=== PATIENT | female | born 2005 | race Caucasian/White ===

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

== ENCOUNTER 2024-09-15 09:37 | Outpatient (OUT) | payer BC, SELFPAY ==
--- OUTSIDE RECORDS SUMMARY | 2024-06-30 05:20 | XMS_ITS | Continuity of Care Document ---
Author Organization [facility] Address [address] [facility] [place] [address] Phone Care Team Providers Care Shellfish Grower Name Role Phone Frame, Hill Unavailable Unavailable Allergies, Adverse Reactions, Alerts Substance Reaction Status Criticality No Known Allergies Active No Inform ation Medications Medication Instructions Dosage Effective Dates (start - stop) Status Comments ashwagandha extract 120 mg capsule - Active Hair, Skin and Nails (biotin) 10,000 mcg chewable tablet - Active fludrocortisone 0.1 mg tablet take 1 tablet by oral route every day 0.1 MG - Active Judie Fe 1.5/30 (28) 1.5 mg-30 mcg (21)/75 mg (7) tablet take 1 tablet by oral route every day 1.00 tablet - Active escitalopram 10 mg tablet take 1 tablet by oral route every day 10 MG - Active iron 325 mg (65 mg iron) tablet take 1 tablet by oral route every day 325 MG - Active Procedures Procedure Date CHIROPRACTIC MANIPULATION CHIROPRACTIC MANIPULATION CHIROPRACTIC MANIPULATION CHIROPRACTIC MANIPULATION OFFICE/OUTPATIENT VISIT, NEW STREP A ASSAY W/OPTIC INFLUENZA ASSAY W/OPTIC INFLUENZA ASSAY W/OPTIC OFFICE/OUTPATIENT VISIT, EST OFFICE/OUTPATIENT VISIT, NEW Advance Directives Directive Yes / No Effective Date File Name No Information Encounters Encounter Description Practice Location Reason(s) For Visit Diagnoses Date Provider Providers Copied on Encounter [facility], [address] [place] [address] [address], [place], [place], [id number], tel:[phone] [facility] Adjustment (chief complaint) Segmental and somatic dysfunction of cervical regionNeck pain, acuteSegmental and somatic dysfunction of thoracic regionPain in thoracic spineSegmental and somatic dysfunction of lumbar regionSegmental and somatic dysfunction of pelvic regionSacroiliac joint painRecurrent headacheAcute bilateral low back pain without sciatica Apr-2 - 5 Frame Hill. [address], [place], [place], [id number] , [place]. tel:[phone] Referring Provider: Hill Rivera, [address] [place], [address] . tel:[phone] [facility], [address] [place] [address], [place], [place], [id number], tel:[phone] [facility] adj (chief complaint) Segmental and somatic dysfunction of thoracic regionPain in thoracic spineSegmental and somatic dysfunction of lumbar regionChronic bilateral low back pain without sciaticaSegmental and somatic dysfunction of pelvic regionSacroiliac joint painOther chronic painSegmental and somatic dysfunction of cervical regionNeck pain, acute May-03 11- 5 Frame Hill. [address], [place], [place], [id number] , [place]. [phone] Referring Provider: Hill Rivera, [address] [place], [address] . tel:[phone] [facility], [address] [place] [address] [address], [place], [place], [id number], tel:[phone] [facility] Adjustment (chief complaint) Segmental and somatic dysfunction of thoracic regionPain in thoracic spineSegmental and somatic dysfunction of lumbar regionChronic bilateral low back pain without sciaticaOther chronic painSegmental and somatic dysfunction of pelvic regionSacroiliac joint pain Mar-0 - 5 Frame Hill. [address], [place], [place], [id number] , [place]. [phone] Referring Provider: Hill Rivera, [address] [place] [place], [address] . tel:[phone] OFFICE/OUTPAT IENT VISIT, [facility], [address] [address] [address], [place], [place], [id number], [place] tel:[phone] [facility] Establish Chiro Care (chief complaint) Segmental and somatic dysfunction of thoracic regionPain in thoracic spineSegmental and somatic dysfunction of lumbar regionChronic bilateral low back pain without sciaticaOther chronic painSegmental and somatic dysfunction of pelvic regionSacroiliac joint pain 5 Wilmer Alejandre. [address], [place], [place], [id number] , [place]. [phone] Referring Provider: Hill Rivera, [address], [place], [address] . tel:[phone] OFFICE/OUTPAT IENT VISIT, [facility], [address] [place] [address] [address], [place], [place], [id number], [place] tel:[phone] [facility] sore throat (chief complaint) Pharyngitis due to other organismFlu-like symptomsViral URI 4 Alfonso PICHARDO [employer]UDENT UNION CONS[employer] MILDRED Carter. [address], [place], [place], [id number] , [place]. [phone] Referring Provider: Emma PICHARDO [employer]UDENT [employer] CONS[employer], [address], [place], [address] . tel:[phone] OFFICE/OUTPAT IENT VISIT, [employer] [facility] [employer] [facility], [address] [place] [place] [address] [address], [place], [place], [id number], [place] tel:[phone] [facility] headache (chief complaint) Tension headache 0 4 Fernandez Shultz. [address], [place], [place], [id number] , [place]. tel:[phone] Referring Provider: Lexii Presley PA-C, [address], [place], [address] . tel:[phone] Family History Family Member Type Diagnosis Age At Onset No Information Payers Payer name Insurance type Covered green party ID Hung LUCAS (s) [id number] Social History Type Description Quantity Date Captured Comments Alcohol Use Details Unknown Caffeine Use Details Unknown Tobacco Use Status No Information Smoking Status No Information Sex Female Chief Complaint And Reason For Visit From encounter dated '06/30/2024 09:20'. Adjustment (chief complaint). Description: The patient returns to the office with complaints of increased headaches, neck pain, mid back pain, and lower back pain. She attributes the worsening of hersymptoms and headaches to stress, particularly due to finals week approaching. She notes a slight increase in overall stress, as well as prolonged periods of sitting to study and working two jobs that require her to be on her feet for extended times, which she believes contributes to the elevation of her symptoms. She finds relief with career and technology education teacher and denies any specific injuries or accidents that may have caused her symptoms. Her headaches, primarily stress-related, are described as throbbing pain originating from the right suboccipital region, occurring intermittently about 50% of theday throughout the week. She rates her neck and mid back pain at 3?4/10, describing it asa tight, dull ache, and her lower back pain, which is worse on the right side, as a dull, sharp, intermittent ache throughout the day. She has no additional concerns at this time. Reason For Referral Reason For Referral No Information Plan Of Treatment Date Type Action Status Future Order: Lab Order Throat C surinder ([id number]), Ordered on: Ordered History Of Present Illness Encounter Date Complaint History Of Prese nt Illness Adjustment The patient retu rns to the office with complaints of increased headaches, neck pain, mid back pain, and lower back pain. She attributes the worsening of her symptoms and headaches to stress, particularly due to finals week approaching. She notes a slight increase in overall stress, as well as prolonged periods of sitting to study and working two jobs that require her to be on her feet for extended times, which she believes contributes to the elevation of her symptoms. She finds relief with career and technology education teacher and denies any specific injuries or accidents that may have caused her symptoms. Her headaches, primarily stress-related, are described as throbbing pain originating from the right suboccipital region, occurring intermittently about 50% of the day throughout the week. She rates her neck and mid back pain at 3 4 /10, describing it as a tight, dull ache, and her lower back pain, which is worse on the right side, as a dull, sharp, intermittent ache throughout the day. She has no additional concerns at this time. adj The patient retu rns to the office with complaints of elevated lower right-sided back pain. 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 She rates her lower back pain at 3/10, occurring about 25-50% of the day, describing it as a dull ache that can occasionally become sharp. She also mentions mild neck and mid back pain, which she attributes to stiffness from being on her feet for prolonged periods and carrying heavy buckets. She describes the pain in her neck and mid back as a mild dull ache, occurring less than 25% of the day, and notes that it has continued to improve since her last treatment. She has no additional concerns on today's visit and denies any new injuries or accidents since her last visit to the office. Adjustment The patient retu rns to the office for follow-up treatment for her ongoing mid-back and lower back pain. She reports significant improvement since her last visit, noting that her symptoms are occurring less frequently, now less than 25% of the day, and describing the pain as an occasional dull ache. She mentions being able to walk her dog for longer periods with less noticeable pain or flare-ups. Additionally, she notes that she has been able to sit for prolonged periods while studying for class with less discomfort and pain. Establish Chiro Care The patient presents to the office with complaints of ongoing mid and lower back pain that extends into her hips. She rates her mid-back pain at 3/10 and her lower back pain at 7/10. She reports that her symptoms occur frequently, about 50-75% of the day, and describes the pain as an aching sensation. The patient denies any specific trauma or incident that could have contributed to or worsened her symptoms. She mentions being active in sports, particularly volleyball in the past in 2021, where frequent diving may have aggravated her pain, but she has experienced random flare-ups of similar pain since then. Sitting for prolonged periods and walking around campus tend to elevate her symptoms, especially if she overexerts herself. She notes that more recently she has been sitting for prolonged periods in her bed to study which she notes has aggravated her symptoms Additionally, sitting, standing for long periods, sleeping, or lying down can worsen her pain. She uses heat and her home TENS unit, which provides some relief. The patient also notes having had career and technology education teacher in the past with a chiropractor in [place] at [facility], where she typically found relief for similar symptoms. 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 Comments: Luis Carlos rivera presents accompanied by her friend with complaints of URI like symptoms that began approximately 24 hours ago. Endorses nasal congestion, sore throat, fever of 102.7 that is improved after Tylenol administration. Chills, body aches, and mild fatigue. Patient states that she was recently diagnosed with tension headaches and those seem to be worse as well. Denies any nausea, vomiting, diarrhea, chest pain, cough, or shortness for breath. States that she has been taking ibuprofen, Tylenol, and Excedrin with some relief of her symptoms. Has not taken any cough or cold meds. States that her headache pain is moderate. Is able to eat and drink appropriately. sore throat Onset: 1 Day. Th e severity of the problem is mild. The problem has worsened. The symptoms are persistent. Context additional comments: not around anyone sick. Aggravating factors include lying down. Symptoms are relieved by OTC analgesics. Relieved by additional comments: Tylenol/Ibuprofen ATC. Associated symptoms include chills/rigors, dyspnea, fatigue, headache, nasal congestion and postnasal drainage. Associated symptoms additional comments: body aches. Pertinent negatives include fever or sore throat. Comments: Luis Carlos rivera presents complaining of 2 week history of on/off headache. Patient reports pain level today is 3/10. Patient reports pain is mostly located to the back of her head and wraps around. Patient denies associated URI symptoms. Denies associated trauma to the head. Patient denies PMH of migraines. Patient has been taking Tylenol/ibuprofen with moderate relief. Patient states when medication wears off her headache returns. Denies associated visual changes. Denies associated nausea or episodes of vomiting. Patient reports mother has history migraines. headache Onset: 2 Weeks. Pain level: 3/10. Locations affected include occipital and bilateral temporal. Headache timing includes no pattern. Symptoms are not associated with menses, recent head trauma, recent MVA and stress. Aggravating factors include bright lights and head position. Denies relieving factors. Associated symptoms include phonophobia and photophobia. Pertinent negatives include blurred vision, diplopia, dizziness, fever, hemianopsia left, hemianopsia right, loss of consciousness, memory impairment, nausea, personality changes, neck stiffness, vision loss left, vision loss right, visual aura, vertigo and vomiting. Additional information: states she has had the same dull headache for 2 weeks. no hx of migraines. rates it 3/10. just states it's consistent and she's worried about starting migraines. Mother has a hx of. Functional Status Date Functional Assessmen t No Information Instructions Date Instruction Additional Infor wilbur Viral Upper Respirat ory infections can be caused by many different viruses, and they cause inflammation of the upper respiratory tract. Common symptoms include sore throat, cough, congestion, fever, and body aches. Your rapid strep and influenza tests were negative in the office today. A backup throat culture was sent out to ensure accuracy. You will be notified of results and provided with antibiotic if appropriate.You were provided with a Medrol Dosepak to help with your headache. Please follow package instructions.It is recommended that you avoid contact with others until you are fever free off of fever reducing medications for 24 hours. Tamiflu is a treatment for influenza. We discussed his during your visit. Due to the fact that we did not have a definitive diagnosis you declined Tamiflu treatment at this time.May alternate Tylenol and Ibuprofen to manage any pain or fevers. You may take up to 800 mg of Ibuprofen every 8 hours, and 1000 mg of Tylenol every 6 hours in alternation. You may utilize [id number] cough and cold medicine just make sure that they do not also have Tylenol in them. I recommend Sudafed for any nasal congestion. And Delsym for any cough.Increase fluid intake and ensure adequate amounts of rest. You were provided with a note for school.Follow up with your primary care provider regarding her tension headache diagnosis. Continue to follow instructions on treatment per your PCP.Please return if new or worsening symptoms present, you may also follow up with your PCP. Please go to the Emergency room for any difficulty with breathing, severe hoarseness, difficulty swallowing, persistent high fever, or uncontrolled vomiting. Related to Pharyngitis due to other organism Due to limited testi ng available in urgent care, brain structural abnormalities, stroke, and other potentially life threatening causes for headache cannot be ruled out. Red Flags that would warrant immediate evaluation in the Emergency Room would include but are not limited to the following: Headaches worsen Seizures If symptoms become worse or if develop confusion, drowsiness, or any change in awareness Increasing confusion or irritability Alterations in mental status Unusual behavior change Can't recognize people or places Change in state of consciousness Very sleepy (more than expected) or can't be awakened Trouble speaking or slurred speech Difficulty walking Repeated vomiting Dizziness or fainting Loss of balance Weakness or numbness of an arm, leg, or a part of your body Development of fever and neck pain/stiffness Change in state of consciousness Can't recognize people or places Focal neurological signs, such as face droop, eyelid droop, foot drop, or any other neurological abnormality Any concern that your symptoms are worsening or emergentRecommendations: Sleep in a dark room Apply cool wash cloth over eyes maintain proper hydration Take ibuprofen per prescription instructions with food to avoid upset stomach. You should not take ibuprofen if: you have kidney disease, high blood pressure or if you already take blood thinners. Ibuprofen per prescription instructions as needed for pain per prescription instructions--take with food to avoid stomach upset. You may alternate with Tylenol over the counter as needed for pain per package instructions Related to Tension headache Assessments Type Assessment Date assessment Segmental and somatic dysfunctio n of cervical region assessment Neck pain, acute assessment Segmental and somatic dysfunctio n of thoracic region assessment Pain in thoracic spine assessment Segmental and somatic dysfunctio n of lumbar region assessment Segmental and somatic dysfunctio n of pelvic region assessment Sacroiliac joint pain assessment Recurrent headache assessment Acute bilateral low back pain wi thout sciatica Patient Care Teams Name Effective Dates (start - stop) Status Members No Information
--- OUTSIDE RECORDS SUMMARY | 2024-09-13 15:45 | XMS_ITS | Encounter Summary ---
Author Organization [facility] Address [address] [place] [address] Care Team Providers Care Store Clerk Checker Name Role Phone Ofe Lopes MD Primary Care Provider [phone] Reason for Visit * Reason Comments 4th pow Exc. of pilonidal cyst & sinus N oticed there was an small opening like a paper cut. Now it looks to be larger. Pt is feeling not great today. She was running a fever but that broke yesterday. Encounter Details Date Type Department Care Team (Late st Contact Info) Description 09/13/2024 3:45 PM EDT Office Visit [facility] [address] [phone] Alfred Monsalve MD [address] [address] Dehiscence of wound of skin, initial encounter (Primary Dx); Pilonidal cyst Social History Tobacco Use Types Packs/Day Years Used Date Smoking Tobacco: Never Smokeless Tobacco: Never Alcohol Use Standard Drinks/Week Comments Yes 0 (1 standard drink = 0.6 oz pur e alcohol) Comments Unknown Sex and Gender Information Value Date Recorded Sex Assigned at Not on file Legal Sex Female 7:15 PM EDT Gender Identity Not on file Sexual Orientation Not on file documented as of this encounter Last Filed Vital Signs Vital Sign Reading Time Taken Comments Blood Pressure - - Pulse - - Temperature - - Respiratory Rate - - Oxygen Saturation - - Inhaled Oxygen Concentration - - Weight 84.4 kg (186 lb) 09/13/2024 3:44 PM EDT Height 156.2 cm (5' 1.5 ) 09/13/2024 3:44 PM EDT Body Mass Index 34.58 09/13/2024 3:44 PM EDT documented in this encounter Progress Notes * Alfred Negrete MD - 09/13/2024 3:45 PM EDT Images from the original note were not included. Patient was about 1 month status post excision of pilonidal cyst and sinus. She was doing very welluntil about a day or so ago when she noticed not feeling well and then developed an open wound at the lower portion of her incision site. On examination, she is awake alert and in no acute distress. The pilonidal incision site shows that the upper portion of the wound remains healed. The lower portion does show separation of the skin. There is underlying pink granulation tissue. There is no surrounding erythema or induration. 1. Dehiscence of wound of skin, initial encounter 2. Pilonidal cyst The lower portion of the incision does have stress placed every time the patient sits down because of the location between the buttocks and the buttocks naturally spreading apart on sitting down. Plan will be to start wet-to-dry dressings to be done daily. Patient's mother will be shown the dressing changes. The patient will follow up in about 1 week. If the wound does heal rapidly, we may let it heal by secondary intention. Other option would be a delayed primary closure. documented in this encounter Plan of Treatment Upcoming Encounters Date Type Department Care Team (Late st Contact Info) Description 09/20/2024 4:00 PM EDT Office Visit [facility] [address] [phone] Alfred Monsalve MD [address] [address] documented as of this encounter Visit Diagnoses Diagnosis Dehiscence of wound of skin, initial encounter- Primary Pilonidal cyst documented in this encounter Care Teams Store Clerk Checker Relationship Specialty Start Date End Date Ofe Lopes MD [address] [facility] [place] [address] PCP - General Family Medicine 07/25/24 documented as of this encounter
--- OUTSIDE RECORDS SUMMARY | 2024-09-15 04:44 | XMS_ITS | Continuity of Care Document ---
Author Organization [facility] Address [address] [place] [address] Phone Care Team Providers Care Registered Radiologic Technologist Name Role Phone Alfred Monsalve MD Attending Provider Ofe Lopes MD Primary Care Provider Ofe Lopes MD Attending Provider Care Teams Patient Care Team Team Status: Active Member Role Status Dates Ofe Lopes MD Primary Care Provider Active Visit Care Team Team Status: Inactive Member Role Status Dates Alfred Monsalve MD Attending Provider Active Sta rt: August 11, 2024 End: August 11, 2024 Ofe Lopes MD Primary Care Provider Active Start: August 11, 2024 End: August 11, 2024 Patient Care Team Team Status: Inactive Member Role Status Dates Ofe Lopes MD Primary Care Provider Active Start: September 15, 2024 End: September 15, 2024 Ofe Lopes MD Attending Provider Active St art: September 15, 2024 End: September 15, 2024 Chief Complaint and Reason for Visit Chief Complaint Admit Date Pilonidal Cyst August 11, 2024 5:44a m swollen face September 15, 2024 8:07 am Reason for Visit Admit Date Dyspnea September 15, 2024 8:07 am Nausea September 15, 2024 8:07 am Swollen face September 15, 2024 8:07 am Allergies, Adverse Reactions, Alerts Allergen Type Severity Reaction Last Updated Verified Status No Known Allergies Allergy Unknown September 15, 2024 8:14a m Yes Active Social History Smoking Status Status Start Date End Date Date of Observa tion Never smoked tobacco (finding) September 15, 2024 8:16am Observation Status Observation Response Date of Response Legal Sex Female (finding) Sex Assigned At Female October, 2005 Family History Relationship Condition Age at Onset Recorded Date/T darrell father Asthma Unknown mother History of cholecystectomy Unknown Problems Active Problems Medical Problem Onset Date Status Chronic recurrent pilonidal cyst Unknown Active Other acute postprocedural pain Unknown Active Swollen face Unknown Active Dyspnea Unknown Active Tension type headache Unknown Active Nausea Unknown Active Medications Medication Status Dose Units Route Directions Qty Days St art Date Stop Date End Date Instructions Adherence Ferrous Sulfate (Ferosul) 325 mg (65 mg iron) tablet Active 325 MG PO Every morning August 11, 2024 12:00a m Complies with drug therapy Ashwagandha Extract 120 mg capsule Active 120 MG PO Daily August 11, 2024 12:00a m Complies with drug therapy Cetirizine (24hour Allergy) 10 mg tablet Active 10 MG PO Daily as needed for allergy symptoms August 11, 2024 12:00a m Complies with drug therapy Biotin 5 mg tablet Active 5 MG PO Daily August 11, 2024 12:00a m Complies with drug therapy Cephalexin 500 mg capsule Discont inued 500 MG PO Q8H 15 August 11, 2024 12:00a m September 15, 2024 8:14a m Metronidazo le 500 mg tablet Discont inued 500 MG PO Q8H 15 August 11, 2024 12:00a m September 15, 2024 8:15a m Hydrocodone -Acetaminop hen 5-325 mg tablet Discont inued 1 TAB PO Q6H as needed for pain 20 August 11, 2024 September 15, 2024 8:15a m Escitalopra m Oxalate 10 mg tablet Active 1 TAB PO Every morning Februa ry 2023 1:00am FreeTextSi tablet Orally Once a day; Note: Source Status: Taking; Provider: Moses Thakur ( ) Complies with drug therapy Fludrocorti sone 0.1 mg tablet Active 1 TAB PO Daily 2023 1:00am FreeTextSi tablet Orally Once a day; Note: Source Status: Taking; Provider: Moses Thakur ( ) Complies with drug therapy Norethindro ne-E.Estrad iol-Iron 1 mg-20 mcg (24)/75 mg (4) tablet Active 1 TAB PO Daily 2023 1:00am FreeTextSi tablet Orally Once a day; Note: Source Status: Taking; Provider: Moses Thakur ( ) Complies with drug therapy Doxycycline Hyclate 100 mg tablet Discont inued 100 MG PO Daily May 18, 2024 12:00a m August 11, 2024 6:09a m Ondansetron 4 mg tablet,disi ntegrating Active 4 MG PO Q8H as needed for nausea and vomiting September 15, 2024 12:00a m Complies with drug therapy Immunizations Immunization Event Date Not Given Reason Dose Number Sales Operations Assistant Lot Number Vaccine Information Statement (VIS) Detail Administration Location COVID-19 mRNA, Comirnaty (Playdom) September 05, 2020 COVID-19 mRNA, Comirnaty (Playdom) September 27, 2020 DTap, unspecified September 23, 2016 Meningococcal MCV4O September 23, 2016 meningococcal B, unspecified September 24, 2021 Procedures Procedure Date Performed Status OR Pilonidal Cystectomy (Not Applicable) August 8:40am completed Relevant Diagnostic Tests and/or Laboratory Data Laboratory Results Test Collection Date/Time Result Date/Time Result Interpretation Reference Range Result Comment Performing Site Urine HCG, Qualitative August 11, 2024 5:50am August 11, 2024 6:04am Negative [facility] [id number] [address] [place] [address] Vital Signs Vital Reading Result Reference Range Collection Date/Time Height 61.5 [in_i] August 11, 2024 6:13am Weight 83.00 kg August 11, 2024 6:13am Body Temperature 96.5 [degF] 97.6-99.0 August 11, 2 025 10:00am Heart Rate 69 /min 60-100 August 11, 2024 10:45am Respiratory rate 182 /min 12-24 August 11, 2 025 10:45am Oxygen saturation by Pulse oximetry 100 % 95-100 August 11, 2024 10:45 am BP Systolic 131 mm[Hg] 100-140 August 11, 2024 10:45am BP Diastolic 82 mm[Hg] 60-100 August 11, 2024 10:45am Inhaled oxygen flow rate 8 L/min Aug 10:00am Height 61.5 [in_i] September 15, 2024 8:13am Weight 81.19 kg September 15, 2024 8:13am Body Temperature 98.5 [degF] 97.6-99.0 September 15, 2024 8:13am Heart Rate 115 /min 60-100 September 15, 2024 8:13am Oxygen saturation by Pulse oximetry 99 % 95-100 September 15, 2024 8:13 am BP Systolic 111 mm[Hg] 100-140 September 15, 2024 8:13am BP Diastolic 67 mm[Hg] 60-100 September 15, 2024 8:13am BMI (Body Mass Index) 33.3 kg/m2 September 062024 8:13am Advance Directives Advance Directive Response Recorded Date/ Time Advance Directives No April 16, 2023 12:54pm Insurance Providers Guarantor Katrina Lopez Address [address] [place] [phone] Contact Info. Home Phone: Payer Policy Id Subscriber's Name Subscriber Id Effectiv e Date Expiration Date [facility] [place] [id number] Katlyn Lopez [id number] Encounters Encounter Location(s) Arrival/Admit Date Discharge/Depart Date Provider(s) Departed Surgical [facility] -[facility] August 11, 2024 5:44am August 11, 2024 11:08am Alfred Negrete MD Departed Physician/Prov ider Office Visit -[facility] September 15, 2024 8:07am September 15, 2024 8:43am Ofe Lopes MD Recent Diagnosis Onset Date Admit Date Dyspnea Unknown September 15, 2024 8:07am Nausea Unknown September 15, 2024 8:07am Swollen face Unknown September 15, 2024 8:07am Assessments Diagnosis Onset Date Resolution Status Admit Date Dyspnea acute September 15 8:07am Nausea acute September 15 8:07am Swollen face acute September 15, 2 025 8:07am Plan of Treatment Future Tests Future scheduled test information is unavailable Pending Tests Test Name Ordered Date Scheduled Date Comprehensive Metabolic Panel September 15, 2024 8: 37am XR chest 2V* September 15, 2024 8:35am XR sinus min 3V* September 15, 2024 8:35am Future Visits Future appointment information is unavailable Referrals to Other Providers Reason for Referral Referral Start Date Provider Provider Contact Information Provider Address Alfred Negrete MD Work Phone: [address] [address] Future Procedures Procedure Name Ordered Date Scheduled Date Post Anesthesia Tracer order August 11, 2024 8:09 am August 11, 2024 8:15am Discharge Order August 11, 2024 10:04am August 11, 2024 10:04am Complete Blood Count Auto Diff September 15, 2024 8 :37am Future Medications Future medication information is unavailable Patient Instructions Instruction Admit Date Metronidazole (Systemic) Cephalexin Hydrocodone and Acetaminophen Pilonidal cyst - Discharge instructions Know your Meds August 11, 2024 5:44am Goals Acute Goals Author Authored Date Experience reduced anxiety * Identifies current stressors * Develops effective coping behaviors * Uses support services as appropriate [facility] August 11, 2024 11:11am Remain free of complications [facility] August 11, 2024 11:11am Understand preop/postop care/sensations * Verbalizes understanding of surgical procedure * Verbalizes understanding of sensations following surgery * Verbalizes understanding of post-op treatment plan [facility] August 11, 2024 11:11am Report pain at tolerable lev el * Uses pain scale appropriately * Identify options for pain control - Analgesics - Narcotics - Non-medication measures [facility] August 11, 2024 11:11am Absence of imbalanced fluid volume s/s [facility] August 11, 2024 11:11am Absence of physical injury [facility] August 11, 2024 11:11am Absence of surgical site inf ection [facility] August 11, 2024 11:11am
--- OUTSIDE RECORDS SUMMARY | 2024-09-15 09:43 | XMS_ITS | Encounter Summary ---
Author Organization [facility] Address [address] [place] [address] Care Team Providers Care Manager User Experience Name Role Phone Ofe Lopes MD Primary Care Provider [phone] Encounter Details Date Type Department Care Team (Latest Contact Info) Description 09/14/2024 Travel Social History Tobacco Use Types Packs/Day Years [...] on file documented as of this encounter Plan of Treatment Upcoming Encounters Date Type Department Care Team (Late st Contact Info) Description 09/20/2024 4:00 PM EDT Office Visit [facility] [address] [phone] Alfred Monsalve MD [address] [facility] [address] [place] [address] documented as of this encounter Visit Diagnoses Not on filedocumented in this encounter Care Teams Manager User Experience Relationship Specialty Start Date End Date Ofe Lopes MD [address] [facility] [place] [phone] PCP - General Family Medicine 07/25/24 documented as of this encounter
--- OUTSIDE RECORDS SUMMARY | 2024-09-15 09:43 | XMS_ITS | Encounter Summary ---
Author Organization [facility] Address [address] [place] [address] Care Team Providers Care Cathode Ray Tube Salvage Processor Name Role Phone Ofe Lopes MD Primary Care Provider [phone] Encounter Details Date Type Department Care Team (Latest Contact Info) Description 09/13/2024 Travel Social History Tobacco Use Types Packs/Day [...] EDT Office Visit [facility] [address] [phone] Alfred Monsalve MD [address] [facility] [address] [place] [address] documented as of this encounter Visit Diagnoses Not on filedocumented in this encounter Care Teams Cathode Ray Tube Salvage Processor Relationship Specialty Start Date End Date Ofe Lopes MD [address] [facility] [place] [phone] PCP - General Family Medicine 07/25/24 documented as of this encounter
--- OUTSIDE RECORDS SUMMARY | 2024-09-15 09:43 | XMS_ITS | Encounter Summary ---
Author Organization [facility] Address [address] [place] [address] Care Team Providers Care Health Educator Name Role Phone Ofe Lopes MD Primary Care Provider [phone] Encounter Details Date Type Department Care Team (Late Contact Info) Description 08/15/[address] [facility] [address] [phone] Alfred Monsalve MD [address] [place] [address] Social History Tobacco Use Types Packs/Day Years [...] 4:00 PM EDT Office Visit [facility] [address] [phone] Alfred Monsalve MD [address] [address] documented as of this encounter Procedures Procedure Name Priority Date/Time Associated Diagnosis Comments GENERAL PATHOLOGY Routine 08/11/2024 3:25 PM EDT documented in this encounter Results * GENERAL PATHOLOGY (08/11/2024 3:25 PM EDT) us Alfred Negrete MD [facility] Final Result documented in this encounter Visit Diagnoses Not on filedocumented in this encounter Care Teams Health Educator Relationship Specialty Start Date End Date fOe Lopes MD [address] [place] [address] PCP - General Family Medicine 07/25/24 documented as of this encounter
--- OUTSIDE RECORDS SUMMARY | 2024-09-15 09:43 | XMS_ITS | Clinical Summary ---
Author Organization [facility] Address [address] [place] [address] Care Team Providers Care Steel Fitter Name Role Phone Ofe Lopes MD Primary Care Provider [phone] Allergies No known active allergies Medications escitalopram (Lexapro) 10 MG tablet Take 1 tablet by mouth Daily 11/17/2023 Active fludrocortisone (Florinef) 0.1 MG tablet Take 3 tablets by mouth Daily 11/17/2023 Active norethindrone-e thinyl estradiol-jeremiah us fumarate (Loestrin 24 FE) 1-20 MG-MCG(24) tablet Take 1 tablet by mouth Daily 05/12/2024 Active Active Problems Problem Noted Date Diagnosed Date Dehiscence of wound of skin 09/13/2024 Pilonidal cyst 07/25/2024 Encounters Date Type Department Care Team Description 09/14/2024 Travel 09/13/2024 3:45 PM EDT Office Visit [facility] [address] [phone] Alfred Monsalve MD Dehiscence of wound of skin, initial encounter (Primary Dx); Pilonidal cyst 09/13/2024 Travel 09/12/2024 Travel 08/24/2024 Travel 08/19/2024 9:30 AM EDT Office Visit [facility] [address] [phone] Alfred Monsalve MD Pilonidal cyst (Primary Dx) 08/19/[address] [address] [phone] Alfred Monsalve MD 08/19/2024 Travel 08/15/2024 [facility] [address] [address] [place] [phone] Aflred Monsalve MD 07/25/2024 10:00 AM EDT [facility] [address] [phone] Alfred Monsalve MD Pilonidal cyst 07/25/2024 Travel 07/22/2024 Travel 07/05/2024 Travel from Last 3 Months Family History Relation Name Status Comments Brother Alive 2 Father Alive Mother Alive Sister Alive 1 Social History Tobacco Use Types Packs/Day Years Used Date Smoking Tobacco: Never Smokeless Tobacco: Never Tobacco Cessation:Counseling Given: Not Answered Alcohol Use Standard Drinks/Week Comments Yes 0 (1 standard drink = 0.6 oz pur e alcohol) Comments Unknown Sex and Gender Information Value Date Recorded Sex Assigned at Not on file Legal Sex Female 7:15 PM EDT Gender Identity Not on file Sexual Orientation Not on file Last Filed Vital Signs Vital Sign Reading Time Taken Comments Blood Pressure 114/74 07/25/2024 10:01 AM EDT Pulse - - Temperature - - Respiratory Rate - - Oxygen Saturation - - Inhaled Oxygen Concentration - - Weight 84.4 kg (186 lb) 09/13/2024 3:44 PM EDT Height 156.2 cm (5' 1.5 ) 09/13/2024 3:44 PM EDT Body Mass Index 34.58 09/13/2024 3:44 PM EDT Plan of Treatment Upcoming Encounters Date Type Department Care Team (Late st Contact Info) Description 09/20/2024 4:00 PM EDT [facility] [address] [phone] Alfred Monsalve MD [address] [address] Procedures Procedure Name Priority Date/Time Associated Diagnosis Comments GENERAL PATHOLOGY Routine 08/11/2024 3:25 PM EDT from Last 3 Months Results * GENERAL PATHOLOGY (08/11/2024 3:25 PM EDT) us Alfred Negrete MD [facility] Final Result from Last 3 Months Insurance [facility] Care Teams Steel Fitter Relationship Specialty Start Date End Date Ofe Lopes MD [address] [place] [phone] PCP - General Family Medicine 07/25/24
--- OUTSIDE RECORDS SUMMARY | 2024-09-15 09:43 | XMS_ITS | Clinical Summary ---
Author Organization [facility] Address [address] [place] [address] Care Team Providers Care Order Caller Name Role Phone Ofe Lopes MD Primary Care Provider [phone] Allergies No known active allergies Medications escitalopram (LEXAPRO) 10 MG tabletIndications: Neurocardiogenic syncope,History of syncope,Lightheade d Take 1 tablet by mouth daily 90 tablet 3 4 Active fludrocortisone (FLORINEF) 0.1 MG tablet Take 3 tablets by mouth daily 270 tablet 3 4 Active ferrous sulfate (FE TABS 325) 325 (65 Fe) MG EC tablet Take 1 tablet by mouth 3 times daily (with meals) Active ASHWAGANDHA PO Take by mouth Active BIOTIN PO Take by mouth Active Norethin Dominic-Eth Estrad-FE 1-20 MG-MCG(24) TABSIndications:En counter for surveillance of contraceptive pills Take 1 tablet by mouth daily 3 packet 4 5 Active Active Problems Problem Noted Date Diagnosed Date History of syncope 06/13/2021 Social History Tobacco Use Types Packs/Day Years Used Date Smoking Tobacco: Never Smokeless Tobacco: Never Tobacco Cessation:Counseling Given: Not Answered Alcohol Use Standard Drinks/Week Comments Never 0 (1 standard drink = 0.6 oz pur e alcohol) Comments No Sex and Gender Information Value Date Recorded Sex Assigned at Not on file Legal Sex Female 11:33 AM EDT Gender Identity Not on file Sexual Orientation Not on file Last Filed Vital Signs Vital Sign Reading Time Taken Comments Blood Pressure 138/85 05/12/2024 1:00 PM EST Pulse 85 05/12/2024 1:00 PM EST Temperature - - Respiratory Rate 18 05/12/2024 1:00 PM EST Oxygen Saturation 99% 01/11/2024 8:37 AM EST Inhaled Oxygen Concentration - - Weight 86.2 kg (190 lb) 05/12/2024 1:00 PM EST Height 156.2 cm (5' 1.5 ) 05/12/2024 1:00 PM EST Body Mass Index 35.32 05/12/2024 1:00 PM EST Plan of Treatment Upcoming Encounters Date Type Department Care Team (Late st Contact Info) Description 01/16/2025 1:40 PM EST Office Visit [facility] Part of [address] [phone] Jose Garcia MD [address] [place] [address] 1 yr 05/16/2025 1:30 PM EDT Office Visit [facility] [address] [place] [address] Sarai Huston APRN [address] [address] Annual Health Maintenance Due Date Last Done Comments Depression Screen 2015 HIV screen 11/05/2018 HPV vaccine (1 - 3-dose series) 11/05/2018 Chlamydia/GC screen 2019 Meningococcal B vaccine (1 of 2 - Standard) 2019 Hepatitis C screen 11/05/2021 COVID-19 Vaccine (3 - season) 2023 09/27/2020, 09/05/2020 Flu vaccine (#1) 10/07/2024 DTaP/Tdap/Td vaccine (7 - Td or Tdap) 09/23/2026 09/23/2016, 09/17/2009, 12/24/2004, Additional history exists Hepatitis B vaccine Completed 05/20/2004, 03/26/2004, 01/11/2004 Pneumococcal 0-49 years Vaccine Aged Out 05/20/2004, 03/26/2004, 01/11/2004 No longer eligible based on patient's age to complete this topic Hib vaccine Completed 12/24/2004, 03/09, 01/11/2004 Measles,Mumps,Rubella (MMR) vaccine Discontinued 09/17/2009, 12/24/2004 Polio vaccine Completed 09/17/2009, 05/07, 03/26/2004, Additional history exists Varicella vaccine Completed 09/17/2009, 12/24/2004 Meningococcal (ACWY) vaccine Aged Out 09/23/2016 No longer eligible based on patient's age to complete this topic Hepatitis A vaccine Aged Out No longe r eligible based on patient's age to complete this topic Insurance [facility] Care Teams Order Caller Relationship Specialty Start Date End Date Ofe Lopes MD [facility] [place] [phone] PCP - General Family Medicine 01/16/21
--- OUTSIDE RECORDS SUMMARY | 2024-09-15 09:43 | XMS_ITS | Encounter Summary ---
Author Organization [facility] Address [address] [place] [address] Care Team Providers Care Heel Cementer Name Role Phone Ofe Lopes MD Primary Care Provider [phone] Encounter Details Date Type Department Care Team (Latest Contact Info) Description 09/12/2024 Travel Social History Tobacco Use Types Packs/Day [...] EDT Office Visit [facility] [address] [phone] Alfred Monsalve MD 7[address] [facility] [address] [place] [address] documented as of this encounter Visit Diagnoses Not on filedocumented in this encounter Care Teams Heel Cementer Relationship Specialty Start Date End Date Ofe Lopes MD [address] [facility] [place] [phone] PCP - General Family Medicine 07/25/24 documented as of this encounter
--- NOTE | 2024-09-15 10:02 | XR_ITS ---
The [address] [address] Patient Name: LUIS ZHOU MRN: [id number] date: 2005 Sex: F Assigned Patient Location: LAB Current Patient Location: LAB Accession/Order Number: [id number] Exam Date: 09/15/2024 11:22 Report Date: 09/15/2024 11:24 At the request of: STEVE KATHLEEN MD Procedure: XR chest 2V CLINICAL DATA: Facial swelling, greater on the right, fever and shortness of breath. PARANASAL SINUSES - 4 views COMPARISON: None AP, Solorzano, Alondra's and lateral views were obtained. The paranasal sinuses show normal pneumatization. No definite mucosal thickening or air-fluid levels are seen. No soft tissue abnormalities are noted. There are no pathologic intracranial calcifications. XR/XR chest 2V IMPRESSION: No plain film evidence of sinus disease. PA AND LATERAL CHEST: COMPARISON: None There is no focal parenchymal consolidation, effusion or pneumothorax. The cardiac, hilar and mediastinal silhouettes are within normal limits. There is no vascular congestion. The visualized bony thorax is intact. IMPRESSION: NO ACUTE CARDIOPULMONARY ABNORMALITY. Impression dictated by: Sally Billingsley M.D. 09/15/2024 11:24 AM Dictation Location: [place] [address] Electronically authenticated by: [id number] Y Date: 09/15/2024 11:24
--- NOTE | 2024-09-15 10:02 | XR_ITS ---
The [address] [address] Patient Name: LUIS ZHOU MRN: [id number] date: 2005 Sex: F Assigned Patient Location: LAB Current Patient Location: LAB Accession/Order Number: [id number] Exam Date: 09/15/2024 11:22 Report Date: 09/15/2024 11:24 At the request of: STEVE KATHLEEN MD Procedure: XR chest 2V CLINICAL DATA: Facial swelling, greater on the right, fever and shortness of breath. PARANASAL SINUSES - 4 views COMPARISON: None AP, Solorzano, Alondra's and lateral views were obtained. The paranasal sinuses show normal pneumatization. No definite mucosal thickening or air-fluid levels are seen. No soft tissue abnormalities are noted. There are no pathologic intracranial calcifications. XR/XR sinus min 3V IMPRESSION: No plain film evidence of sinus disease. PA AND LATERAL CHEST: COMPARISON: None There is no focal parenchymal consolidation, effusion or pneumothorax. The cardiac, hilar and mediastinal silhouettes are within normal limits. There is no vascular congestion. The visualized bony thorax is intact. IMPRESSION: NO ACUTE CARDIOPULMONARY ABNORMALITY. Impression dictated by: Sally Billingsley M.D. 09/15/2024 11:24 AM Dictation Location: [place] [address] Electronically authenticated by: [id number] Y Date: 09/15/2024 11:24
[2024-09-15 10:12] LABS: Hematocrit 40.8 % (36.0-48.0); Hemoglobin 14.0 g/dL (12.0-16.0); Mean Corpuscular HGB Conc 34.3 g/dL (29.9-35.2); Mean Corpuscular Hemoglobin 29.6 pg (26.7-34.0); Mean Corpuscular Volume 86.3 fL (81.0-99.0); Platelet Count 187 10^3/uL (150-450); Red Blood Count 4.73 10^6/uL (4.20-5.40); White Blood Count 10.3 10^3/uL (4.0-11.0)
[2024-09-15 10:24] LABS: Alanine Aminotransferase 150 U/L (14-59); Albumin Globulin Ratio 0.9; Albumin Level 3.4 g/dL (3.4-5.0); Alkaline Phosphatase 249 U/L (46-116); Anion Gap 15.2; Aspartate Amino Transferase 92 U/L (15-37); Blood Urea Nitrogen 7.0 mg/dL (7.0-18.0); Calcium 9.2 mg/dL (8.5-10.1); Carbon Dioxide 26.8 mmol/L (21.0-32.0); Chloride 104 mmol/L (98-107); Estimated GFR (African America >60 (>=60 mL/min/1.73m^2); Estimated GFR (Non-African Ame >60 (>=60 mL/min/1.73m^2); Globulin 4.0 g/dL; Glucose 82 mg/dL (74-106); Potassium 4.0 mmol/L (3.5-5.1); Sodium 142 mmol/L (136-145); Total Protein 7.4 g/dL (6.4-8.2)
[2024-09-16 14:04] LABS: BOX Test Reference Lab FIRELANDS; BOX Test Sent Out FIRELANDS
[2024-09-16 14:38] LABS: Atypical Lymphocytes % Manual 29.0 %; Atypical Lymphocytes Abs Man 2.98; Basophils Abs Manual 0.00 10^3/uL (0.00-0.10); Basophils Percent Manual 0.0 % (0.2-2.0); Eosinophils Absolute Manual 0.00 10^3/uL (0.00-0.70); Eosinophils Percent Manual 0.0 % (0.9-7.0); Lymphocytes Absolute Manual 3.50 10^3/uL (1.20-3.80); Lymphocytes Percent Manual 34.0 % (20.5-60.0); Monocytes Absolute Manual 0.61 10^3/uL (0.30-0.80); Monocytes Percent Manual 6.0 % (1.7-12.0); Segmented Neut Absolute Manual 3.19 10^3/uL (1.4-6.5); Segmented Neutrophils % Manual 31.0 (43.0-75.0)
== END 2024-09-15 09:38 | disposition home or self-care (01) ==
PROVIDERS: PCP Family Medicine; Visit Provider Family Medicine
DX: R22.0 Localized swelling, mass and lump, head (principal); R06.00 Dyspnea, unspecified; R11.0 Nausea
CPT/HCPCS: 36415; 70220; 71046; 80053; 85007; 85027